=== PATIENT | female | born 1950 | race African-American/Black ===

== ENCOUNTER 2022-05-17 12:41 | Inpatient (IN) ==
[2022-05-17] MEDS ORDERED: ONDANSETRON 4 MG/2 ML VIAL IV PRN (15:14)
[2022-05-17] MEDS ORDERED: ALBUTEROL 2.5 MG/3 ML NEB RESP TX PRN (15:14)
[2022-05-17] MEDS ORDERED: GLUCAGON 1 MG VIAL IM PRN (15:14)
[2022-05-17] MEDS ORDERED: DEXTROSE 10% 250 ML BAG IV PRN (15:14)
[2022-05-17] MEDS ORDERED: DOCUSATE SODIUM 100 MG CAPSULE PO PRN (15:14)
[2022-05-17] MEDS ORDERED: hydrALAZINE 20 MG/1 ML VIAL IV PRN (15:14)
[2022-05-17] MEDS ORDERED: ACETAMINOPHEN 325 MG TABLET PO PRN (15:14)
[2022-05-17 15:50] LABS: Basophils % 0.4 % (0.0-0.8); Eosinophils # 0.1 10*3/uL (0.0-0.87); Eosinophils % 1.9 % (0.00-10.9); Hematocrit 27.3 VOL% (35.7-47.0); Hemoglobin 8.5 GM/DL (12.0-16.0); Immature Granulocytes % 0.2 %; Immature Granulocytes Absolute 0.01 #; Lymphocytes # 2.2 10*3/uL (1.4-4.0); Lymphocytes % 42.4 % (21.3-54.2); Mean Corpuscular HGB Conc 31.1 GM/DL (32-36); Mean Corpuscular Volume 94.5 FL (87-102); Mean Platelet Volume 9.5 FL (9.6-12.0); Monocytes # 0.4 10*3/uL (0.11-0.8); Monocytes % 7.9 % (1.7-12.7); Neutrophils % 47.2 % (38.7-73.9); Platelet Count 286 T/CUMM (130-400); Red Blood Count 2.89 MC/CUMM (3.8-5.5); Red Cell Distribution Width 13.7 % (9.3-17.3); White Blood Count 5.2 T/CUMM (4-12)
[2022-05-17 16:11] LABS: Alanine Aminotransferase 17 U/L (13-56); Albumin 2.9 G/DL (3.4-5.0); Alkaline Phosphatase 121 U/L (45-117); Aspartate Amino Transferase 16 U/L (0-37); Bilirubin,Total < 0.39 MG/DL (0.20-1.00); Blood Urea Nitrogen 18 MG/DL (7-18); Calcium 9.1 MG/DL (8.5-10.1); Carbon Dioxide 25 MMOL/L (21-32); Chloride 110 MMOL/L (98-107); Glucose 121 MG/DL (74-106); Osmolality,Calculated 277.7 MOS/KG (273-304); Potassium 4.7 MMOL/L (3.5-5.1); Sodium 138 MMOL/L (136-145); Total Protein 7.3 G/DL (6.4-8.2)
[2022-05-17] MEDS: CLINDAMYCIN INJ 600 MG/50 ML PREMIX IV SCH ×2 (17:36→23:59)
[2022-05-17 22:37] LABS: Bilirubin,Urine Negative (Negative); Blood, Urine Negative (Negative); Glucose,Urine (UA) 500 mg/dL (Negative); Ketones,Urine Negative (Negative); Nitrite,Urine Negative (Negative); Protein,Urine Negative (Negative); RBC,Urine <1 /HPF (0-4); Urine Appearance Clear (Clear); Urine Color Yellow (Yellow); Urine Urobilinogen 0.2 eU/dL (<2.0)
[2022-05-17] MEDS: ENOXAPARIN 40 MG/0.4 ML SYRINGE SUBCUT SCH (22:52)
[2022-05-18 05:46] LABS: Basophils % 0.4 % (0.0-0.8); Eosinophils # 0.1 10*3/uL (0.0-0.87); Hematocrit 24.1 VOL% (35.7-47.0); Hemoglobin 7.7 GM/DL (12.0-16.0); Immature Granulocytes % 0.2 %; Immature Granulocytes Absolute 0.01 #; Lymphocytes # 2.4 10*3/uL (1.4-4.0); Lymphocytes % 52.2 % (21.3-54.2); Mean Corpuscular Volume 93.8 FL (87-102); Mean Platelet Volume 9.9 FL (9.6-12.0); Monocytes # 0.4 10*3/uL (0.11-0.8); Monocytes % 9.6 % (1.7-12.7); Neutrophils % 35.6 % (38.7-73.9); Platelet Count 272 T/CUMM (130-400); Red Blood Count 2.57 MC/CUMM (3.8-5.5); Red Cell Distribution Width 13.6 % (9.3-17.3); White Blood Count 4.6 T/CUMM (4-12)
[2022-05-18 06:21] LABS: Hypochromia Slight; Lymphocytes 46 % (20-55); Microcytosis Slight; Platelet Estimate Adequate; Total Cells Counted 100
[2022-05-18 06:35] LABS: Calcium 9.2 MG/DL (8.5-10.1); Osmolality,Calculated 282.1 MOS/KG (273-304); Potassium 4.5 MMOL/L (3.5-5.1); Risk Ratio 2.79; Thyroid Stimulating Hormone 1.21 uIU/ml (0.358-3.74)
[2022-05-18] MEDS: CLINDAMYCIN INJ 600 MG/50 ML PREMIX IV SCH ×2 (10:15→16:10)
[2022-05-18] MEDS: NICOTINE 21 MG/24 HR PATCH TRANSDERM SCH (10:16)
[2022-05-18] MEDS: PANTOPRAZOLE 40 MG TABLET PO SCH (10:16)
[2022-05-18] MEDS ORDERED: DEXTROSE 50% 25 GM/50 ML VIAL IV PRN (12:12)
[2022-05-18] MEDS: FERROUS SULFATE 325 MG TABLET PO SCH ×2 (16:10→20:37)
[2022-05-18] MEDS: INSULIN LISPRO 100 UNIT/ML SUBCUT SCH (20:35)
[2022-05-18] MEDS: hydrOXYzine HCL 25 MG TABLET PO SCH (20:37)
[2022-05-18] MEDS: ATORVASTATIN 20 MG TABLET PO SCH (20:37)
[2022-05-18] MEDS: carvediloL 3.125 MG TABLET PO SCH (20:37)
[2022-05-18] MEDS: MIRTAZAPINE 15 MG TABLET PO SCH (20:37)
[2022-05-18] MEDS: GABAPENTIN 100 MG CAPSULE PO SCH (20:38)
[2022-05-18] MEDS: DONEPEZIL 10 MG TABLET PO SCH (20:38)
[2022-05-19] MEDS: CLINDAMYCIN INJ 600 MG/50 ML PREMIX IV SCH (00:04)
[2022-05-19 04:38] LABS: Basophils % 0.5 % (0.0-0.8); Eosinophils # 0.1 10*3/uL (0.0-0.87); Eosinophils % 1.9 % (0.00-10.9); Hemoglobin 7.3 GM/DL (12.0-16.0); Immature Granulocytes % 0.5 %; Immature Granulocytes Absolute 0.02 #; Lymphocytes # 1.7 10*3/uL (1.4-4.0); Lymphocytes % 40.3 % (21.3-54.2); Mean Corpuscular HGB Conc 31.7 GM/DL (32-36); Mean Corpuscular Volume 92.7 FL (87-102); Mean Platelet Volume 9.7 FL (9.6-12.0); Monocytes # 0.4 10*3/uL (0.11-0.8); Monocytes % 10.4 % (1.7-12.7); Neutrophils % 46.4 % (38.7-73.9); Platelet Count 237 T/CUMM (130-400); Red Blood Count 2.48 MC/CUMM (3.8-5.5); Red Cell Distribution Width 13.4 % (9.3-17.3); White Blood Count 4.1 T/CUMM (4-12)
[2022-05-19 04:54] LABS: Calcium 8.9 MG/DL (8.5-10.1); Osmolality,Calculated 282.5 MOS/KG (273-304); Potassium 4.1 MMOL/L (3.5-5.1)
[2022-05-19] MEDS: INSULIN LISPRO 100 UNIT/ML SUBCUT SCH ×3 (08:54→17:41)
[2022-05-19 10:50] LABS: PT Patient Result 10.9 SECS (10.1-12.1)
[2022-05-19] MEDS: carvediloL 3.125 MG TABLET PO SCH ×2 (11:17→21:59)
[2022-05-19] MEDS: NICOTINE 21 MG/24 HR PATCH TRANSDERM SCH (11:17)
[2022-05-19] MEDS: FERROUS SULFATE 325 MG TABLET PO SCH ×3 (11:17→21:59)
[2022-05-19] MEDS: PANTOPRAZOLE 40 MG TABLET PO SCH (11:18)
[2022-05-19] MEDS: DONEPEZIL 10 MG TABLET PO SCH (21:59)
[2022-05-19] MEDS: hydrOXYzine HCL 25 MG TABLET PO SCH (21:59)
[2022-05-19] MEDS: ATORVASTATIN 20 MG TABLET PO SCH (21:59)
[2022-05-19] MEDS: GABAPENTIN 100 MG CAPSULE PO SCH (22:00)
[2022-05-19] MEDS: MIRTAZAPINE 15 MG TABLET PO SCH (22:00)
[2022-05-20] MEDS: INSULIN LISPRO 100 UNIT/ML SUBCUT SCH ×5 (00:49→20:51)
[2022-05-20 06:22] LABS: Basophils % 0.4 % (0.0-0.8); Eosinophils # 0.1 10*3/uL (0.0-0.87); Eosinophils % 2.3 % (0.00-10.9); Hematocrit 25.1 VOL% (35.7-47.0); Hemoglobin 7.9 GM/DL (12.0-16.0); Lymphocytes # 2.1 10*3/uL (1.4-4.0); Mean Corpuscular HGB Conc 31.5 GM/DL (32-36); Mean Corpuscular Volume 93.7 FL (87-102); Monocytes # 0.4 10*3/uL (0.11-0.8); Monocytes % 8.8 % (1.7-12.7); Neutrophils % 45.5 % (38.7-73.9); Platelet Count 267 T/CUMM (130-400); Red Blood Count 2.68 MC/CUMM (3.8-5.5); Red Cell Distribution Width 13.8 % (9.3-17.3); White Blood Count 4.9 T/CUMM (4-12)
[2022-05-20 06:50] LABS: Calcium 9.1 MG/DL (8.5-10.1); Osmolality,Calculated 287.1 MOS/KG (273-304)
[2022-05-20] MEDS: FERROUS SULFATE 325 MG TABLET PO SCH ×3 (10:10→20:52)
[2022-05-20] MEDS: PANTOPRAZOLE 40 MG TABLET PO SCH (10:11)
[2022-05-20] MEDS: NICOTINE 21 MG/24 HR PATCH TRANSDERM SCH (10:11)
[2022-05-20] MEDS: carvediloL 3.125 MG TABLET PO SCH ×2 (10:11→20:52)
[2022-05-20] MEDS ORDERED: DIAZEPAM 5 MG TABLET PO ONE (12:53)
[2022-05-20] MEDS ORDERED: MORPHINE 2 MG/1 ML SYRINGE IV ONE (16:01)
[2022-05-20] MEDS ORDERED: MORPHINE 2 MG/1 ML SYRINGE ONE (16:04)
[2022-05-20] MEDS ORDERED: MORPHINE 2 MG/1 ML SYRINGE IV PRN (17:15)
[2022-05-20] MEDS: MIRTAZAPINE 15 MG TABLET PO SCH (20:51)
[2022-05-20] MEDS: DONEPEZIL 10 MG TABLET PO SCH (20:51)
[2022-05-20] MEDS: ENOXAPARIN 40 MG/0.4 ML SYRINGE SUBCUT SCH (20:51)
[2022-05-20] MEDS: hydrOXYzine HCL 25 MG TABLET PO SCH (20:52)
[2022-05-20] MEDS: ATORVASTATIN 20 MG TABLET PO SCH (20:52)
[2022-05-20] MEDS: GABAPENTIN 100 MG CAPSULE PO SCH (20:52)
[2022-05-21] MEDS: INSULIN LISPRO 100 UNIT/ML SUBCUT SCH ×4 (08:21→21:33)
[2022-05-21 08:56] LABS: Basophils % 0.4 % (0.0-0.8); Eosinophils # 0.1 10*3/uL (0.0-0.87); Eosinophils % 2.2 % (0.00-10.9); Hematocrit 26.4 VOL% (35.7-47.0); Hemoglobin 8.1 GM/DL (12.0-16.0); Immature Granulocytes % 0.2 %; Immature Granulocytes Absolute 0.01 #; Lymphocytes # 2.1 10*3/uL (1.4-4.0); Lymphocytes % 45.3 % (21.3-54.2); Mean Corpuscular HGB Conc 30.7 GM/DL (32-36); Mean Platelet Volume 9.9 FL (9.6-12.0); Monocytes # 0.4 10*3/uL (0.11-0.8); Monocytes % 9.2 % (1.7-12.7); Neutrophils % 42.7 % (38.7-73.9); Platelet Count 261 T/CUMM (130-400); Red Blood Count 2.78 MC/CUMM (3.8-5.5); White Blood Count 4.6 T/CUMM (4-12)
[2022-05-21 09:21] LABS: Alanine Aminotransferase 17 U/L (13-56); Albumin 3.1 G/DL (3.4-5.0); Alkaline Phosphatase 103 U/L (45-117); Aspartate Amino Transferase 16 U/L (0-37); Bilirubin,Total < 0.39 MG/DL (0.20-1.00); Blood Urea Nitrogen 22 MG/DL (7-18); Calcium 9.2 MG/DL (8.5-10.1); Carbon Dioxide 25 MMOL/L (21-32); Chloride 113 MMOL/L (98-107); Glucose 117 MG/DL (74-106); Osmolality,Calculated 284.3 MOS/KG (273-304); Sodium 141 MMOL/L (136-145); Total Protein 6.7 G/DL (6.4-8.2)
[2022-05-21] MEDS: FERROUS SULFATE 325 MG TABLET PO SCH ×3 (09:35→21:26)
[2022-05-21] MEDS: carvediloL 3.125 MG TABLET PO SCH ×2 (09:35→21:27)
[2022-05-21] MEDS: PANTOPRAZOLE 40 MG TABLET PO SCH (09:35)
[2022-05-21] MEDS: NICOTINE 21 MG/24 HR PATCH TRANSDERM SCH (10:10)
[2022-05-21] MEDS ORDERED: traMADol 50 MG TABLET PO PRN (15:09)
[2022-05-21] MEDS: GABAPENTIN 100 MG CAPSULE PO SCH (21:25)
[2022-05-21] MEDS: hydrOXYzine HCL 25 MG TABLET PO SCH (21:25)
[2022-05-21] MEDS: ATORVASTATIN 20 MG TABLET PO SCH (21:25)
[2022-05-21] MEDS: MIRTAZAPINE 15 MG TABLET PO SCH (21:25)
[2022-05-21] MEDS: ENOXAPARIN 40 MG/0.4 ML SYRINGE SUBCUT SCH (21:26)
[2022-05-21] MEDS: DONEPEZIL 10 MG TABLET PO SCH (21:26)
[2022-05-22 05:50] LABS: Basophils % 0.4 % (0.0-0.8); Eosinophils # 0.1 10*3/uL (0.0-0.87); Eosinophils % 1.6 % (0.00-10.9); Hematocrit 24.6 VOL% (35.7-47.0); Hemoglobin 7.6 GM/DL (12.0-16.0); Immature Granulocytes % 0.4 %; Immature Granulocytes Absolute 0.02 #; Lymphocytes # 1.8 10*3/uL (1.4-4.0); Lymphocytes % 31.8 % (21.3-54.2); Mean Corpuscular HGB Conc 30.9 GM/DL (32-36); Mean Platelet Volume 10.2 FL (9.6-12.0); Monocytes # 0.3 10*3/uL (0.11-0.8); Monocytes % 5.7 % (1.7-12.7); Neutrophils % 60.1 % (38.7-73.9); Platelet Count 260 T/CUMM (130-400); Red Blood Count 2.59 MC/CUMM (3.8-5.5); Red Cell Distribution Width 13.8 % (9.3-17.3); White Blood Count 5.6 T/CUMM (4-12)
[2022-05-22] MEDS: INSULIN LISPRO 100 UNIT/ML SUBCUT SCH ×2 (07:58→12:41)
[2022-05-22] MEDS ORDERED: amLODIPine 10 MG TABLET PO SCH (09:00)
[2022-05-22] MEDS: PANTOPRAZOLE 40 MG TABLET PO SCH (09:28)
[2022-05-22] MEDS: carvediloL 3.125 MG TABLET PO SCH (09:28)
[2022-05-22] MEDS: FERROUS SULFATE 325 MG TABLET PO SCH (09:28)
[2022-05-22] MEDS: NICOTINE 21 MG/24 HR PATCH TRANSDERM SCH (09:29)
[2022-05-22 11:49] VITALS: BP 128/66
== END 2022-05-22 13:20 | disposition home health service (06) | DRG 181 ==
LOC: N.5E 13:58 → SUATTDRO 13:58 → INTOOBSV 13:58
PROVIDERS: ADMIT Internal Medicine; ATTEND Internal Medicine
PROC: IRGDHTC (2022-05-20 10:05)